=== PATIENT | male | born 1950 | race Two or more races ===

== ENCOUNTER 2025-10-26 00:12 | Inpatient (IN) | payer MEDICARE, BC ==
[~2025-10-26] VITALS: Ht 167.6 cm; Wt 70.3 kg
[2025-10-26] MEDS ORDERED: TDAP [DIPH/PERTUSSIS/TET] 0.5 ML VIAL IM ONE (01:15)
[2025-10-26] MEDS: TDAP [DIPH/PERTUSSIS/TET] 0.5 ML VIAL IM ONE (01:29)
[2025-10-26 02:51] LABS: PLATELET COUNT (AUTO) 225 K/uL (150-450); RED BLOOD CELL COUNT(AUTO) 4.29 MIL/uL (4.5-6.0); RED CELL DISTRIBUTION WIDTH 12.9 % (11.5-15.0); WHITE BLOOD COUNT (AUTO) 7.4 K/uL (4.3-11.0)
[2025-10-26 02:57] LABS: CALCIUM, SERUM 8.7 mg/dL (8.5-10.1); CREATININE 0.4 mg/dL (0.6-1.3); SODIUM SERUM 137.0 mmol/L (136-145); UREA NITROGEN, BLOOD 20.0 mg/dL (7-18)
[2025-10-26 03:08] LABS: INR 1.11 (0.91-1.10)
[2025-10-26] MEDS ORDERED: POTASSIUM CHLORIDE 20 MEQ TAB.PRT.SR PO ONE ×2 (03:29→16:00)
[2025-10-26] MEDS ORDERED: MAGNESIUM HYDROXIDE 30 ML UDC PO PRN (03:30)
[2025-10-26] MEDS ORDERED: Z GUARD REMEDY 4 OZ OINT TP PRN (03:30)
[2025-10-26] MEDS ORDERED: ONDANSETRON HCL/PF 4 MG/2 ML VIAL IVP PRN (03:30)
[2025-10-26] MEDS: POTASSIUM CHLORIDE 20 MEQ TAB.PRT.SR PO ONE (03:37)
[2025-10-26 04:00] VITALS: BP 109/76; TEMP 98.1; O2SAT 97
[2025-10-26 05:00] VITALS: BP 109/76; TEMP 98.1; O2SAT 97
[2025-10-26 07:00] VITALS: BP 110/68; TEMP 97.3; O2SAT 97
[2025-10-26] MEDS: PANTOPRAZOLE 40 MG TABLET.DR PO SCH (07:30)
[2025-10-26] MEDS ORDERED: LISI1TAB32 PO (08:16)
[2025-10-26] MEDS ORDERED: FENT1PAT4 TD (08:16)
[2025-10-26] MEDS ORDERED: DULO60CA64 PO (08:16)
[2025-10-26] MEDS ORDERED: MORP30TA PO (08:16)
[2025-10-26] MEDS ORDERED: FELO10TA44 PO (08:16)
[2025-10-26] MEDS ORDERED: GABA600T12 PO (08:16)
[2025-10-26] MEDS ORDERED: ATOR20TA PO (08:16)
[2025-10-26] MEDS ORDERED: FURO20TA4 PO (08:16)
[2025-10-26] MEDS ORDERED: METO25TA4 PO (08:16)
[2025-10-26] MEDS ORDERED: DIAZ5TAB4 PO (08:16)
[2025-10-26] MEDS ORDERED: METH20TA50 PO (08:16)
[2025-10-26] MEDS ORDERED: CICLOPIROX TP (08:16)
[2025-10-26] MEDS: METOPROLOL SUCCINATE 25 MG TAB.SR.24H PO SCH (12:00)
[2025-10-26] MEDS ORDERED: HYDROCODONE/APAP 5/325MG TABLET PO PRN (12:00)
[2025-10-26] MEDS: DULOXETINE HCL 30 MG CAPSULE.DR PO SCH (12:00)
[2025-10-26] MEDS: AMLODIPINE BESYLATE 2.5 MG TABLET PO SCH (12:00)
[2025-10-26] MEDS: CLOTRIMAZOLE 1% 15 GM TUBE TP SCH (13:10)
[2025-10-26] MEDS: NEOMY SULF/BACITRAC ZN/POLY 15 GM TUBE TP SCH (13:10)
[2025-10-26 16:00] VITALS: BP 122/79; TEMP 97.7; O2SAT 100
[2025-10-26] MEDS ORDERED: HYDROCODONE/APAP 10/325MG TABLET PO PRN (16:00)
[2025-10-26] MEDS ORDERED: NALOXONE HCL 0.4 MG/ML AMPUL IV PRN (16:00)
[2025-10-26] MEDS ORDERED: DIAZEPAM 5 MG TABLET PO PRN (16:00)
[2025-10-26] MEDS: GABAPENTIN 300 MG CAPSULE PO SCH (17:43)
[2025-10-26] MEDS: ACETAMINOPHEN 325 MG TABLET PO PRN (17:43)
[2025-10-26 20:00] VITALS: BP 110/77; TEMP 97.9; O2SAT 100
[2025-10-26] MEDS: FENTANYL TD PATCH (25 MCG/HR) 25 MCG/HR PATCH.TD72 TD SCH (20:19)
[2025-10-26] MEDS: MORPHINE SULFATE SR 15 MG TABLET.SA PO SCH (21:22)
[2025-10-26] MEDS: ATORVASTATIN 10 MG TABLET PO SCH (21:22)
[2025-10-26 23:07] VITALS: BP 110/77; TEMP 99; O2SAT 100
[2025-10-27] VITALS: BP 96/53; TEMP 97.5; O2SAT 97
[2025-10-27 04:00] VITALS: BP 106/77; TEMP 98.1; O2SAT 96
[2025-10-27 06:42] LABS: CALCIUM, SERUM 8.3 mg/dL (8.5-10.1); CREATININE 0.5 mg/dL (0.6-1.3); PHOSPHORUS 2.7 mg/dL (2.5-4.9); SODIUM SERUM 140.0 mmol/L (136-145); UREA NITROGEN, BLOOD 18.0 mg/dL (7-18)
[2025-10-27 06:45] LABS: PLATELET COUNT (AUTO) 216 K/uL (150-450); RED BLOOD CELL COUNT(AUTO) 3.90 MIL/uL (4.5-6.0); RED CELL DISTRIBUTION WIDTH 13.0 % (11.5-15.0); WHITE BLOOD COUNT (AUTO) 5.4 K/uL (4.3-11.0)
[2025-10-27 08:00] VITALS: BP 93/61; TEMP 98.1; O2SAT 98
[2025-10-27] MEDS: LISINOPRIL (10MG) 10 MG TABLET PO SCH (09:35)
[2025-10-27] MEDS: HYDROCHLOROTHIAZIDE 25 MG TABLET PO SCH (09:36)
[2025-10-27] MEDS: METOPROLOL SUCCINATE 25 MG TAB.SR.24H PO SCH (09:38)
[2025-10-27 20:00] VITALS: BP_SYST 84; BP_SYST 95; BP_DIAS 60; TEMP 97.5; O2SAT 97
[2025-10-28] VITALS: BP 100/60; TEMP 97.5; O2SAT 96
[2025-10-28 04:00] VITALS: BP 98/60; TEMP 97.7; O2SAT 95
[2025-10-28 08:00] VITALS: BP 91/73; TEMP 98.2; O2SAT 96
[2025-10-28] MEDS ORDERED: METOPROLOL SUCCINATE 25 MG TAB.SR.24H PO SCH (09:00)
[2025-10-28] MEDS ORDERED: FENTANYL TD PATCH (25 MCG/HR) 25 MCG/HR PATCH.TD72 TD SCH (09:00)
[2025-10-28 12:08] VITALS: BP 105/72; TEMP 97.9; O2SAT 97
[2025-10-28 16:00] VITALS: BP 108/84; TEMP 98.4; O2SAT 99
[2025-10-28 20:00] VITALS: BP 103/70; TEMP 98.2; O2SAT 99
[2025-10-29] VITALS: BP 109/66; TEMP 97.5; O2SAT 98
[2025-10-29 08:00] VITALS: BP 103/76; TEMP 97.9; O2SAT 99
[2025-10-29 16:00] VITALS: BP 114/81; TEMP 96.3; O2SAT 100
[2025-10-29 20:00] VITALS: BP_SYST 105; BP_SYST 159; BP_DIAS 76; BP_DIAS 98; TEMP 97.5; TEMP 98.8; O2SAT 100; O2SAT 97
[2025-10-30] VITALS: BP_SYST 108; BP_SYST 116; BP_DIAS 68; BP_DIAS 82; TEMP 98.1; O2SAT 98
[2025-10-30 04:00] VITALS: BP 111/71; TEMP 97.7; O2SAT 98
[2025-10-30 08:00] LABS: PLATELET COUNT (AUTO) 216 K/uL (150-450); RED BLOOD CELL COUNT(AUTO) 4.03 MIL/uL (4.5-6.0); RED CELL DISTRIBUTION WIDTH 12.8 % (11.5-15.0); WHITE BLOOD COUNT (AUTO) 4.8 K/uL (4.3-11.0)
[2025-10-30 08:34] LABS: CALCIUM, SERUM 8.1 mg/dL (8.5-10.1); CREATININE 0.4 mg/dL (0.6-1.3); SODIUM SERUM 133.0 mmol/L (136-145); UREA NITROGEN, BLOOD 18.0 mg/dL (7-18)
[2025-10-30 08:54] VITALS: BP 94/55; TEMP 98.1; O2SAT 99
[2025-10-30 09:08] VITALS: BP 94/55; TEMP 98.1; O2SAT 99
[2025-10-30 16:00] VITALS: BP 103/73; TEMP 97.9; O2SAT 97
== END 2025-10-30 20:00 | disposition home or self-care (01) | DRG 560 ==
LOC: ER 00:13 → TELE 03:31 → MED 04:07 → TELE 17:58
PROVIDERS: ADMIT Nurse Practitioner Acute Care; ATTEND Nurse Practitioner Acute Care
DX: M96.0 Pseudarthrosis after fusion or arthrodesis (principal); G83.4 Cauda equina syndrome; G95.89 Other specified diseases of spinal cord; I87.311 Chronic venous hypertension (idiopathic) with ulcer of right lower extremity; L97.819 Non-pressure chronic ulcer of other part of right lower leg with unspecified severity; R62.7 Adult failure to thrive; E83.51 Hypocalcemia; I50.9 Heart failure, unspecified; S61.214A Laceration without foreign body of right ring finger without damage to nail, initial encounter; I11.0 Hypertensive heart disease with heart failure; I73.9 Peripheral vascular disease, unspecified; G47.419 Narcolepsy without cataplexy; I35.0 Nonrheumatic aortic (valve) stenosis; M50.023 Cervical disc disorder at C6-C7 level with myelopathy; M48.02 Spinal stenosis, cervical region; I87.2 Venous insufficiency (chronic) (peripheral); R29.6 Repeated falls; E78.5 Hyperlipidemia, unspecified; Z79.891 Long term (current) use of opiate analgesic; R53.1 Weakness; M19.90 Unspecified osteoarthritis, unspecified site; M16.0 Bilateral primary osteoarthritis of hip; I25.10 Atherosclerotic heart disease of native coronary artery without angina pectoris; G89.4 Chronic pain syndrome; X58.XXXA Exposure to other specified factors, initial encounter; Y93.9 Activity, unspecified; Y92.009 Unspecified place in unspecified non-institutional (private) residence as the place of occurrence of the external cause; M50.31 Other cervical disc degeneration, high cervical region; M43.16 Spondylolisthesis, lumbar region; M21.332 Wrist drop, left wrist; G58.8 Other specified mononeuropathies; Y83.8 Other surgical procedures as the cause of abnormal reaction of the patient, or of later complication, without mention of misadventure at the time of the procedure; M50.223 Other cervical disc displacement at C6-C7 level; M51.379 Other intervertebral disc degeneration, lumbosacral region without mention of lumbar back pain or lower extremity pain; M48.07 Spinal stenosis, lumbosacral region; D17.79 Benign lipomatous neoplasm of other sites; M47.897 Other spondylosis, lumbosacral region; M25.78 Osteophyte, vertebrae; R32 Unspecified urinary incontinence
CPT/HCPCS: 36415; 70450-TC; 70551-TC; 71045-TC; 72125-TC; 72131-TC; 72141-TC; 72146-TC; 72148-TC; 80048-TC; 83735-TC; 84100-TC; 85025-TC; 85730-TC; 90715; 93307-TC; 93880-TC; 93970-TC; 97110-TC; 97112-TC; 97530-TC; 97535-TC; G0378